=== PATIENT | female | born 1980 | race American Indian/Alaskan Native ===

== ENCOUNTER 2016-12-26 12:26 | Emergency (ER) | payer OTHER ==
[2016-12-26 14:08] LABS: RBC URINE 1 /hpf (0-3); URINE BILIRUBIN NEGATIVE (NEGATIVE); URINE BLOOD NEGATIVE (NEGATIVE); URINE COLOR Yellow (YELLOW); URINE GLUCOSE (UA) NORMAL (Normal); URINE KETONE NEGATIVE (NEGATIVE); URINE LEUKOCYTE ESTERASE NEG Leu/uL (Negative); URINE PROTEIN 1+ mg/dL (NEGATIVE); URINE UROBILINOGEN NORMAL mg/dL (0.2-1.0); WBC URINE 1 /hpf (0-5)
[2016-12-26 14:12] LABS: BASO % 0.6 % (0.0-2.0); EOS # 0.1 K/uL (0.0-0.7); EOS % 1.2 % (0.0-4.0); HEMATOCRIT 40.8 % (34.0-47.0); LYMPH % 37.2 % (20.0-40.0); MEAN CELL VOLUME 83.8 fL (81.0-99.0); MEAN CORPUSCULAR HEMOGLOBIN 27.6 pg (27.0-31.0); MEAN PLATELET VOLUME 9.3 fL (7.2-11.7); MONO # 0.5 K/uL (0.0-0.8); MONO % 9.8 % (0.0-10.0); RED CELL DISTRIBUTION WIDTH 16.1 % (11.5-14.5); WHITE BLOOD COUNT 5.5 K/uL (4.8-10.8)
[2016-12-26 14:24] LABS: CHLORIDE 97 mmol/L (98-107); POTASSIUM 3.2 mmol/L (3.6-5.2); SODIUM 136 mmol/L (132-148)
[2016-12-26 14:26] LABS: GFR AFRICAN-AMERICAN > 60
[2016-12-26 14:27] LABS: ALKALINE PHOSPHATASE 61 U/L (38-126); ALT/SGPT 36 U/L (9-52); AST/SGOT 25 U/L (14-36); BILIRUBIN,TOTAL 0.5 mg/dL (0.2-1.3); BLOOD UREA NITROGEN 12 mg/dL (7-17); CALCIUM 9.2 mg/dl (8.6-10.4); CARBON DIOXIDE 25 mmol/L (22-30); GLUCOSE,RANDOM 93 mg/dL (65-105); TOTAL PROTEIN 7.7 g/dL (6.3-8.3)
--- NOTE | 2016-12-26 15:26 | US ---
Indication: 9 wks, bleeding x 1 day Comparison: None. Technique: Real-time transabdominal pelvic ultrasound was performed. In addition a transvaginal pelvic ultrasound was necessary to better depict pelvic anatomy. Findings: 13.8 x 6.7 x 7.7 cm. Retroverted. Cervix length measures approximately 5.0 cm. There is a single intrauterine fetus present. The gestational sac appears irregularly shaped and measures 2.0 cm and is compatible with a gestational age of 7 weeks 0 days. No evidence of yolk sac or pole. Question presence of a 8 mm subchorionic hemorrhage. The right ovary measures 2.0 x 1.7 x 2.3 cm and contains evidence of a 2.2 cm complex cyst, likely corpus luteum. The left ovary was not visualized. Blood flow is demonstrated to the right ovary. Impression: Limited study. Irregularly-shaped intrauterine gestational sac compatible with gestational age 7 weeks 0 days without evidence of yolk sac or pole. Correlate clinically including beta HCG and [employer] consultation if indicated. Questionable presence of an 8 mm subchorionic hemorrhage. Probable 2.2 cm right ovarian corpus luteum. The left ovary was not visualized.
--- NOTE | 2016-12-26 16:20 | C.PDOC ---
History Of Present Illness 36 y/o female, A1, 9 weeks , is sent to the ED by PMD, Dr. Perry, for evaluation of elevated blood pressure and . Pt states she has been taking her blood pressure medication intermittently throughout. Pt states she was on BP medication during her last , and feels it may have caused miscarriage. Otherwise, denies any n/v/d, abdominal pain, or fever. Time Seen by Provider: 12/26/16 13:11 Chief Complaint (Nursing): High Blood Pressure History Per: Patient History/Exam Limitations: no limitations Onset/Duration Of Symptoms: Days Current Symptoms Are (Timing): Still Present Associated Symptoms: denies: Chest Pain, Dyspnea, Dizziness, Blurred Vision, Focal Weakness, Headache Severity: None Pain Scale Rating Of: 0 Exacerbating Factor(s): Pos: None Recent travel outside of the [place]: No Additional History Per: Patient Past Medical History Reviewed: Historical Data, Nursing Documentation, Vital Signs Vital Signs: Last Vital Signs Temp 98.6 F 12/26/16 12:41 Pulse 78 12/26/16 15:39 Resp 18 12/26/16 15:39 BP 200/122 H 12/26/16 16:30 Pulse Ox 100 12/26/16 17:34 - Medical History PMH: HTN - [facility] Procedures INJECT RH IMMUNE GLOBUL (01/26/13) Family History: States: Unknown Family Hx - Social History Hx Tobacco Use: No Hx Alcohol Use: No Hx Substance Use: No - Immunization History Hx Tetanus Toxoid Vaccination: No Hx Influenza Vaccination: No Hx Pneumococcal Vaccination: No Review Of Systems Except As Marked, All Systems Reviewed And Found Negative. Constitutional: Negative for: Fever, Chills Cardiovascular: Negative for: Chest Pain, Palpitations Respiratory: Negative for: Shortness of Breath Gastrointestinal: Negative for: Nausea, Vomiting, Abdominal Pain, Diarrhea Neurological: Negative for: Headache, Dizziness Physical Exam - Physical Exam Appears: Non-toxic, No Acute Distress Skin: Normal Color, Warm, Dry Head: Atraumatic, Normacephalic Cardiovascular: Rhythm Regular, No Murmur Respiratory: Normal Breath Sounds, No Rales, No Rhonchi, No Wheezing Gastrointestinal/Abdominal: Normal Exam, Soft, No Tenderness, No Guarding, No Rebound Neurological/Psych: Oriented x3, Normal Speech, Normal Cognition ED Course And Treatment - Laboratory Results Result Diagrams: 12/26/16 13:47 12/26/16 13:47 Lab Interpretation: Abnormal (quant 12,265, A NEG, Ua +1 Protein) Urine POC: Positive ECG: Interpreted By Me ECG Rhythm: Sinus Rhythm ECG Interpretation: Normal (+ LVH) O2 Sat by Pulse Oximetry: 100 Pulse Ox Interpretation: Normal Reevaluation Time: 16:58 Reassessment Condition: Improved - Physician Consult Information Outcome Of Conversation: [id number] call to OB, Dr. Perry Medical Decision Making Medical Decision Making: Hypertension in and NOT pre-eclampsia. Prior poorly controlled HTN Improved with Labetolol PO- will continue as opt ? threatened AB with mis-shapened early gestation small for date/age. AB neg, unclear if appropriate RhoGam in prior miscarraiges may have predisposed to maternal/ incompatibility complications in this and future pregnancies. pt claims she did not receive ANY rhogam in 3rd /miscarraige, but DID receive during 1st and 2nd pregnancies. Disposition Doctor Will See Patient In The: Office Counseled Patient/Family Regarding: Studies Performed, Diagnosis - Disposition Referrals: Michael Perry MD [Staff Provider] - Disposition: HOME/ ROUTINE Disposition Time: 16:59 Condition: GOOD Additional Instructions: continue Labetolol 400 mg twice a day (8AM and 4PM) to lower your blood pressure Follow-up with your PMD for further BP control meds- depending on status different medications may/will be used. You received RhoGam today considering your threatened and AB NEGATIVE blood type You should receive RhoGam ANY time you have vaginal bleeding during pregnancies. If you have menstrual-like bleeding, then this would be considered an In Progress. Prescriptions: Labetalol [Trandate] 400 mg PO BID #120 tab Instructions: Threatened Miscarriage (ED), Hypertension (ED) Forms: [facility] (Estonian) - Clinical Impression Clinical Impression: Hypertension affecting in first trimester, Threatened - Scribe Statement The provider has reviewed the documentation as recorded by the Scribe Matthew Griffin All medical record entries made by the Scribe were at my direction and personally dictated by me. I have reviewed the chart and agree that the record accurately reflects my personal performance of the history, physical exam, medical decision making, and the department course for this patient. I have also personally directed, reviewed, and agree with the discharge instructions and disposition.
[2016-12-26 17:48] VITALS: BP 187/99; PULSE 71; RESP 16; TEMP 98.4; O2SAT 97
--- NOTE | 2016-12-29 14:41 | CARD ---
APPROVED REPORT EKG Measurement Heart [id number] <Conclusion> Normal sinus rhythm Possible Left atrial enlargement Left ventricular hypertrophy Nonspecific ST abnormality Abnormal ECG
== END 2016-12-26 17:49 | disposition home or self-care (01) ==
LOC: C.ER 12:26
DX: O16.1 Unspecified maternal hypertension, first trimester (principal); Z3A.09 9 weeks gestation of pregnancy; O20.0 Threatened abortion
CPT/HCPCS: 76805; 76817; 80053; 81001; 84702; 84703; 85025; 86850; 86900; 93005; 96372; 99285; J2792

== ENCOUNTER 2017-01-03 00:09 | Emergency (ER) | payer OTHER ==
[2017-01-03 00:38] VITALS: TEMP 98.4
[2017-01-03] MEDS ORDERED: Sodium Chloride 0.9% 1,000 ML IV ONE (01:06)
[2017-01-03] MEDS ORDERED: Labetalol 25mg/5ml Syringe IVP STA (01:06)
--- NOTE | 2017-01-03 01:07 | C.PDOC ---
History Of Present Illness Patient presents to the ER with a complaint of heavy vaginal bleeding and passing large clots. Patient was seen a few days ago for vaginal bleeding; had an US done that showed an irregularly shaped sac with a possible miscarriage and received a rogam shot at the time. Denies fever, chills, nausea, or vomiting. Time Seen by Provider: 01/03/17 01:05 Chief Complaint (Nursing): Abdominal Pain History Per: Patient History/Exam Limitations: no limitations Onset/Duration Of Symptoms: Hrs Current Symptoms Are (Timing): Still Present Severity: Moderate Pain Scale Rating Of: 5 Location Of Pain/Discomfort: Suprapubic Radiation Of Pain To:: None Quality Of Discomfort: Unable To Describe Associated Symptoms: denies: Fever, Chills, Nausea, Vomiting Exacerbating Factors: None Alleviating Factors: None Recent travel outside of the [place]: No Abnormal Vaginal Bleeding: Yes Past Medical History Reviewed: Historical Data, Nursing Documentation, Vital Signs Vital Signs: Last Vital Signs Temp 98.4 F 01/03/17 00:21 Pulse 75 01/03/17 02:39 Resp 18 01/03/17 02:39 BP 157/80 H 01/03/17 02:39 Pulse Ox 99 01/03/17 02:39 - Medical History PMH: HTN Surgical History: No Surg Hx - [facility] Procedures INJECT RH IMMUNE GLOBUL (01/26/13) Family History: States: No Known Family Hx - Social History Hx Tobacco Use: No Hx Alcohol Use: No Hx Substance Use: No - Immunization History Hx Tetanus Toxoid Vaccination: No Hx Influenza Vaccination: No Hx Pneumococcal Vaccination: No Review Of Systems Constitutional: Negative for: Fever, Chills Gastrointestinal: Positive for: Abdominal Pain. Negative for: Nausea, Vomiting , Diarrhea Genitourinary: Positive for: Vaginal Bleeding Physical Exam - Physical Exam Appears: Non-toxic Skin: Warm, Dry Oral Mucosa: Moist Chest: Symmetrical, No Tenderness Cardiovascular: Rhythm Regular, No Murmur Respiratory: No Rales, No Rhonchi, No Wheezing Gastrointestinal/Abdominal: Soft, Tenderness (Suprapubic), No Guarding, No Rebound Pelvic: Vaginal Bleeding, No Cervical Motion Tenderness, No Cervix Open (Closed) , No Adnexal Tenderness, Other (Blood in the introitus) Neurological/Psych: Oriented x3 ED Course And Treatment - Laboratory Results Result Diagrams: 01/03/17 01:20 01/03/17 01:20 O2 Sat by Pulse Oximetry: 98 (Room air) Pulse Ox Interpretation: Normal Progress Note: Blood work, urinalysis, and pelvis/transvaginal US ordered. Trandate, morphine, zofran, and IV fluids administered. Reevaluation Time: 04:02 Reassessment Condition: Improved Medical Decision Making Medical Decision Making: Upon provider reevaluation patient is feeling better, is medically stable, and requires no further treatment in the ED at this time. Patient will be discharged home with Rx for percocet, zofran . Counseling was provided and all questions were answered regarding diagnosis and need for follow up with dr barrett. There is agreement to discharge plan. Return if symptoms persist or worsen. Disposition Counseled Patient/Family Regarding: Studies Performed, Diagnosis, Need For Followup, Rx Given - Disposition Referrals: Michael Barrett MD [Staff Provider] - Disposition: HOME/ ROUTINE Disposition Time: 01:07 Condition: FAIR Additional Instructions: Please return if heavy bleeding , dizziness or just not feeling well Prescriptions: Ondansetron ODT [Zofran ODT] 1 odt PO BID PRN #15 odt PRN Reason: Nausea/Vomiting oxyCODONE/Acetaminophen [Percocet 5/325 mg Tab] 1 tab PO QID PRN #16 tab PRN Reason: Pain Instructions: Spontaneous Miscarriage (ED) Forms: [facility] (Botswanan) - Clinical Impression Clinical Impression: Spontaneous - Scribe Statement The provider has reviewed the documentation as recorded by the Scribe Raphael Ruano All medical record entries made by the Scribe were at my direction and personally dictated by me. I have reviewed the chart and agree that the record accurately reflects my personal performance of the history, physical exam, medical decision making, and the department course for this patient. I have also personally directed, reviewed, and agree with the discharge instructions and disposition.
[2017-01-03] MEDS ORDERED: Morphine 4 MG/ML VIAL ONE (01:18)
[2017-01-03] MEDS ORDERED: Sodium Chloride 0.9% 1,000 ML ONE (01:19)
[2017-01-03 01:25] LABS: BASO % 0.6 % (0.0-2.0); EOS # 0.1 K/uL (0.0-0.7); EOS % 1.5 % (0.0-4.0); HEMOGLOBIN 12.1 g/dL (11.0-16.0); LYMPH # 1.9 K/uL (1.0-4.3); LYMPH % 25.8 % (20.0-40.0); MEAN CELL VOLUME 84.1 fL (81.0-99.0); MEAN CORPUSCULAR HEMOGLOBIN 27.4 pg (27.0-31.0); MEAN CORPUSCULAR HGB CONC 32.6 g/dL (33.0-37.0); MEAN PLATELET VOLUME 9.2 fL (7.2-11.7); MONO # 0.6 K/uL (0.0-0.8); MONO % 8.7 % (0.0-10.0); NEUT # 4.7 K/uL (1.8-7.0); NEUT % 63.4 % (50.0-75.0); NRBC % 0.1 % (0.0-2.0); RBC 4.41 Mil/uL (3.80-5.20); RED CELL DISTRIBUTION WIDTH 15.7 % (11.5-14.5); WHITE BLOOD COUNT 7.4 K/uL (4.8-10.8)
[2017-01-03 01:32] LABS: PROTHROMBIN TIME 11.4 SECONDS (9.7-12.2)
[2017-01-03] MEDS ORDERED: Labetalol 25mg/5ml Syringe ONE (01:32)
[2017-01-03 01:35] LABS: ALBUMIN 3.7 g/dL (3.5-5.0)
[2017-01-03 01:38] LABS: ALT/SGPT 29 U/L (9-52); AST/SGOT 22 U/L (14-36); BLOOD UREA NITROGEN 12 mg/dL (7-17); GFR AFRICAN-AMERICAN > 60; GFR NON-AFRICAN AMERICAN > 60
[2017-01-03 01:39] LABS: CALCIUM 8.5 mg/dl (8.6-10.4)
[2017-01-03 01:59] LABS: URINE BILIRUBIN NEGATIVE (NEGATIVE); URINE BLOOD 3+ (NEGATIVE); URINE CLARITY Hazy (Clear); URINE COLOR Red (YELLOW); URINE GLUCOSE (UA) NORMAL (Normal); URINE LEUKOCYTE ESTERASE NEG Leu/uL (Negative); URINE NITRATE NEGATIVE (NEGATIVE); URINE PROTEIN 2+ mg/dL (NEGATIVE); URINE UROBILINOGEN NORMAL mg/dL (0.2-1.0)
[2017-01-03] MEDS ORDERED: cefTRIAXone IV 1 gm in Dextros 50 ML IVPB ONE (02:02)
[2017-01-03 04:37] VITALS: BP 169/92; PULSE 77; RESP 16; O2SAT 100
--- NOTE | 2017-01-03 08:52 | US ---
Pelvic ultrasound History: 7 weeks . Miscarriage. Comparison: Prior report dated 12/26/2016 Technique: Real-time sonography was performed through the pelvis utilizing transvaginal techniques. Findings: Uterus: 10.4 x 6.2 x 7.8 centimeters. Heterogeneous echotexture. Retroverted. Multiple heterogeneous uterus lesions noted seen at the fundal aspect of the uterus measuring 4.1 x 4.4 x 4.3 centimeters and at the mid left aspect of the uterus measuring 3.2 x 2.5 x 3.0 centimeters. These may represent fibroid lesions. Endometrium measures 1.7 centimeters, thickened. Heterogeneous material within the cervix. No discrete intrauterine identified. No discrete fluid in the pelvic cul-de-sac. Right ovary: 2.5 x 1.9 x 2.0 centimeters. Normal flow. Left ovary: Not well visualized. Study limited secondary to patient body habitus. Impression: Findings concerning for spontaneous . Clinical correlation. Suggestion of probable clot within the cervix. Thickened heterogeneous endometrium. Clinical correlation. Probable fibroid uterus. Additional findings as above. These findings were preliminarily reported at 3:29 a.m. on 01/03/[address] Shine Gonzalez from [facility].
== END 2017-01-03 04:38 | disposition home or self-care (01) ==
LOC: C.ER 00:09
DX: O03.9 Complete or unspecified spontaneous abortion without complication (principal)
CPT/HCPCS: 76830; 80053; 81001; 84702; 85025; 85610; 85730; 86850; 86870; 86900; 96361; 96374; 96375; 99285; J0696; J2270; J2405; J7040